=== PATIENT | female | born 1970 | race Caucasian/White ===

== ENCOUNTER 2017-10-28 07:03 | Day surgery (SDC) | payer OTHER ==
[2017-10-28] MEDS ORDERED: MIDAZOLAM 1 MG/ML 2 ML INJ ×4 (10:28→11:21)
[2017-10-28] MEDS ORDERED: FENTAnyl 50 MCG/ML VIAL ×2 (10:28→11:21)
== END 2017-10-28 16:04 | disposition home or self-care (01) ==
LOC: GIL 07:03
DX: R19.4 Change in bowel habit (principal); K29.60 Other gastritis without bleeding; K64.8 Other hemorrhoids
CPT/HCPCS: 43239; 87081